=== PATIENT | male | born 1945 | race Caucasian/White ===

== ENCOUNTER 2017-01-18 15:43 | Inpatient (IN) | payer MEDICARE, OTHER ==
--- NOTE | ~2017-01-18 | OR ---
Unit #: [id number] #: [id number] Patient: LEONELA DUMONT [id number] [address] [place], [place] [address] [id number] MR#: [id number] NAME: LEONELA DUMONT ROOM: 555 Date of Procedure: 01/20/2017 Admission Date: 01/18/2017 Surgeon: Goran Amador M.D. : 1945 Attending Physician: Dean Julian M.D. Primary Care Physician: Mari Cooper M.D. OPERATIVE REPORT PRIMARY CARE PHYSICIAN Mari Cooper M.D. PREOPERATIVE DIAGNOSES Nausea, vomiting, diarrhea, colitis in a CAT scan. PROCEDURES PERFORMED Upper gastrointestinal endoscopy and biopsy as well as colonoscopy with biopsies and colonoscopy with polypectomy. POSTOPERATIVE DIAGNOSES For upper gastrointestinal endoscopy: 1. The patient had moderate prepyloric antral erosive gastritis. Otherwise, examination normal up to third part of duodenum. For colonoscopy: 1. The patient had the changes suggestive of ischemic colitis in the form of localized ulceration at the splenic flexure and proximal descending colon. This was in the form of linear ulcers with loss of mucosa in these areas and adjacent mucosa being completely normal with abrupt transition. 2. There was a single sessile polyp in the distal transverse colon. This was about 6 mm in size. It was removed using snare polypectomy. 3. Rest of the examination up to cecum was normal. The patient did not have any diverticulosis nor any internal hemorrhoids. Biopsies obtained from the areas of ischemia. In addition, the polyp was sent for histology. RECOMMENDATIONS 1. Follow up results of polyp histology and biopsies. 2. The patient can be discharged home from GI standpoint. 3. He will be followed up in the office in 8 to 10 weeks' time. SEDATION USED Procedural sedation. DESCRIPTION OF PROCEDURE Following detailed explanation of potential risks and complications of an upper endoscopy and a colonoscopy, namely perforation, bleeding, and complications related to sedation, the patient was brought to GI lab and laid in the left lateral decubitus position. Lubricated tip of the Olympus video upper endoscope was passed through bite block into the proximal esophagus under direct vision. The entire esophageal mucosa was examined and appeared normal. Z-line was nicely demarcated, there being Unit #: [id number] #: [id number] Patient: LEONELA DUMONT no esophagitis or hiatus hernia. The scope was then advanced into the gastric cavity and the latter was insufflated. Mucosa of the fundus, body, and antrum was examined. The patient was noted to have moderate prepyloric antral erythema and erosions indicating antral gastritis. Pylorus was intubated with visualization of the normal duodenal bulb and second and third part of the duodenum. Upon withdrawal and retroflexion, incisura, cardia, and greater curve examined and a biopsy obtained from the antrum for CLOtest. The scope was then withdrawn in the distal esophagus. The entire esophageal mucosa was examined all the way up to pharynx. No additional findings noted. The examination table was then turned by 180 degrees and the patient positioned for a colonoscopy. A digital rectal examination was performed, which was normal. Lubricated tip of the Olympus video colonoscope was inserted through the anus and advanced under direct vision. The scope was advanced and passed up to sigmoid into descending colon. No diverticula were seen in this area. However, at the junction of the descending colon and transverse colon, the patient was noted to have localized long and deep ulceration with a grayish white ulcers in this area. The surrounding mucosa proximally and distally was completely normal. There being abrupt transition from abnormal to normal in either side. The ulceration extended for about 3.5 to 4 cm. There were ulcers in the proximal sigmoid colon as well. The scope tip was then navigated all the way up to cecum with visualization of the ileocecal valve and the appendiceal orifice. Preparation was good with good visualization and photodocumentation was obtained. Successive segments of the colonic mucosa were examined upon withdrawal. The patient was noted to have a single sessile polyp in the distal transverse colon. This was about 7 mm in size. It was removed using snare polypectomy. The polyp was retrieved and sent for histology. We then took biopsies from the area of ischemic colitis in the splenic flexure and proximal descending colon and sent for histology. No additional findings noted. The patient did not have any diverticulosis nor any hemorrhoids. He tolerated the procedure without any postprocedure complications. Dictated by.Marci Abebe TD: 01/21/2017 08:33 JOB #: [id number] CC: Kiera Aquino M.D. OPERATIVE REPORT X Goran Amador MD PROCEDURE OPERATIVE NOTE
--- NOTE | ~2017-01-18 | HP ---
Unit #: [id number] #: [id number] Patient: LEONELA DUMONT [id number] [address] [place], [place] [address] [id number] I MR#: [id number] NAME: LEONELA DUMONT. ROOM: 08674 Age: 71 Sex: M Admission Date: 01/18/2017 : 1945 Attending Physician: Sandee Gallagher M.D. Primary Care Physician: Mari Cooper M.D. HISTORY AND PHYSICAL CHIEF COMPLAINT Lower abdominal pain, nausea, vomiting, diarrhea. HISTORY OF PRESENT ILLNESS This is a 71-year-old gentleman who has a past medical history of diabetes, COPD, chronic respiratory failure on 4 liters oxygen at home, hypertension, dyslipidemia, atrial fibrillation on chronic anticoagulation, history of osteoporosis, benign prostatic hypertrophy, history of pancreatitis in the past. He presented to the emergency room, he said that he thought that he has pancreatitis. He said initially he had vomiting on Saturday three or four times and since then he has had been having lower abdominal pain with no bowel movement in two days. Last night, he said he had diarrhea many times and with increasing abdominal pain he came to the ER. On workup in the ER, he is found to have white count 19,000. Sugar 370, BUN 31, creatinine 1.92. INR 4.2. CT scan shows left colon colitis. He denied chest pain. He had been having some nausea and vomiting on Saturday. Having diarrhea/loose bowels last night. They treated his constipation. Denies any blood in the stool. Denies loss of consciousness, fever, chills, polyuria, polydipsia, dysuria or other complaint. PAST MEDICAL HISTORY 1. History of healthcare-associated pneumonia in June 2016. 2. History of diabetes, insulin dependent. 3. History of COPD, now followed by Dr. Hartley. 4. History of chronic respiratory failure on 4 liters oxygen per nasal cannula. 5. Hypertension. 6. Dyslipidemia. 7. History of atrial fibrillation on chronic anticoagulation followed by Dr. Christianson. 8. History of osteoporosis. 9. Benign prostatic hypertrophy. 10. Subarachnoid hemorrhage, status post clipping in 1997. 11. History of PEA arrest in 2011. 12. Echocardiogram 05/18/2016 showed technically difficult study but shows ejection fraction 60% with mild concentric left ventricular hypertrophy, mild aortic regurgitation, mild tricuspid regurgitation. 13. History of pancreatitis in the past. PAST SURGICAL HISTORY 1. History of clipping of cerebral aneurysm. 2. Partial pancreatectomy. 3. Cholecystectomy. Unit #: [id number] #: [id number] Patient: LEONELA DUMONT 4. Kyphoplasty. 5. History of port placement. HOME MEDICATIONS 1. Hydralazine 50 mg b.i.d. 2. Paroxetine 20 mg daily. 3. Digoxin 0.125 mg daily. 4. DuoNeb nebulizer 1 unit q.i.d. 5. Hydrocodone 10/325 q.6 h. p.r.n. 6. Tizanidine 4 mg t.i.d. 7. Amitriptyline 25 mg h.s. 8. 70/30 25 to 30 units daily. 9. Terazosin 2 mg h.s. 10. Protonix 40 mg daily. 11. Simvastatin 10 mg daily. 12. Coumadin 6 mg daily. 13. Diltiazem ER 360 mg daily. 14. Symbicort 160/4.5 two puffs b.i.d. 15. Lisinopril 20 mg daily. ALLERGIES 1. Cephalexin. 2. Penicillin. 3. Questionable allergy to quinolones but he received Levaquin in the ER with no problems. SOCIAL HISTORY Patient lives with his . He is a former smoker. Does not use alcohol. No other illicit use. He is FULL CODE as per code status. FAMILY HISTORY Notable for father having coronary artery disease, mother had multiple myeloma. REVIEW OF SYSTEMS All review of systems negative except for history of present illness. PHYSICAL EXAMINATION VITAL SIGNS: Temperature 98.7, heart rate 117, respiratory rate 18, blood pressure 135/85, oxygen saturation 97% on room air. GENERAL: Middle-aged man lying in the bed, comfortable, currently not in any distress. He is alert, awake, oriented x3. HEENT: Atraumatic. Mucous membranes are moist. NECK: Supple. No JVD. Tracheal midline. HEART: S1, S2. Regular rate and rhythm. LUNGS: Poor air entry but no rhonchi, no wheezing. ABDOMEN: Soft. Mild, nonspecific lower abdominal tenderness, no guarding, no sign. EXTREMITIES: Normal. No cyanosis, no clubbing, no edema. NEUROLOGIC: No focal neurologic deficits. Cranial nerves II-XII intact. Strength 5/5 both sides. PSYCHIATRIC: Mood and affect are normal. This patient was very cooperative. SKIN: No rash. DIAGNOSTIC STUDIES LABORATORY: Urinalysis is negative. White count 19, hemoglobin 11, hematocrit 34, platelets 261. Lactic acid 1.3. Chemistries sodium 135, Unit #: [id number] #: [id number] Patient: LEONELA DUMONT potassium 4.3, chloride 99, glucose 370, BUN 31, creatinine 1.9, alkaline phosphatase 359. Lipase less than 10, amylase 6. INR 4.2. IMAGING: CT scan shows diffuse thickening wall of left side of colon up to the splenic flexure. Thickening of rectum. ASSESSMENT AND PLAN 1. Acute colitis, left-sided. Will place patient on full liquid diet. Start IV Levaquin, IV Flagyl, IV Protonix. Ask Dr. Amador to evaluate. 2. Proctitis, per CT scan. 3. Acute renal failure. Place on IV fluid. 4. Insulin-dependent diabetes, hyperglycemia. 5. History of chronic obstructive pulmonary disease, end-stage, oxygen dependent. 6. History of chronic respiratory failure. 7. Hypertension. Continue home medications. Hold lisinopril and continue diltiazem. 8. Dyslipidemia. Continue simvastatin. 9. History of anxiety depression. 10. Osteoporosis. 11. Benign prostatic hypertrophy. 12. Chronic atrial fibrillation. Increased INR, hold Coumadin. Repeat INR in the morning. 13. DVT prophylaxis on Coumadin. Dictated by Marci Maya/toni TD: 01/18/2017 22:00 JOB #: [id number] HISTORY AND PHYSICAL X X HISTORY AND PHYSICAL
--- NOTE | ~2017-01-18 | CO ---
Unit #: [id number] #: [id number] Patient: LEONELA SANCHEZ [id number] [address] [place], [place] [address] [id number] I MR#: [id number] NAME: LEONELA SANCHEZ. ROOM: 555 Age: 71 Sex: M Admission Date: 01/18/2017 : 1945 Attending Physician: Kiera Aquino M.D. Primary Care Physician: Mari Cooper M.D. Consultation Date: 01/19/2017 CONSULTATION REPORT PRIMARY CARE PHYSICIAN Mari Cooper M.D. REASON FOR CONSULTATION Nausea, vomiting, diarrhea, and colitis on a CAT scan. HISTORY OF PRESENT ILLNESS Mr. Sanchez is a very pleasant 71-year-old white gentleman, who is well known to me. He has longstanding history of chronic pancreatitis with partial pancreatic resection more than 15 years ago. Also, the patient has presented with history of left and right lower quadrant abdominal pain, constipation followed by profuse diarrhea symptomatic for the past 3 days. In addition, he also has history of epigastric pain. His diarrhea is continued. There is no history of overt GI bleed in the form of hematemesis, melena, or hematochezia. The patient did have a CT scan that shows left-sided colitis. The patient also had some history of anorexia and weight loss in the past, but this has been stabilized for a while. PAST MEDICAL HISTORY Chronic pancreatitis, status post partial resection more than 12 years ago; history of COPD, requiring long-term home oxygen; history of hypertension; diabetes; chronic pancreatitis and resection; hyperlipidemia; compression fractures; history of depression and anxiety; benign prostatic hypertrophy. PAST SURGICAL HISTORY Included partial pancreatectomy more than 15 years ago; cholecystectomy; history of intracerebral aneurysm surgery; history of subarachnoid hemorrhage in the past. FAMILY HISTORY Significant for diabetes, stroke, renal disease, but none of colon or pancreatic cancer. SOCIAL HISTORY Heavy smoker in the past and remote alcohol abuse. He has been abstinent approximately more than 13 to 14 years. , lives at home with his . ALLERGIES Penicillin and dicloxacillin as well as nuts and peaches. MEDICATIONS At home included the following; digoxin, lisinopril, hydralazine, DuoNeb, Unit #: [id number] #: [id number] Patient: LEONELA SANCHEZ hydrocodone, tizanidine, amitriptyline, insulin, terazosin, Protonix, simvastatin, Coumadin, diltiazem, Symbicort, and lisinopril. REVIEW OF SYSTEMS Detailed review of organ systems does not reveal any recent weight loss. No history of fever, chills, or rigors. No history of headache, seizures, chest pain, or syncope. No history of cough, expectoration, or hemoptysis. No history of dysuria, hematuria, or pyuria. No history of focal seizures or extremity weakness. Rest of review of organ systems is unremarkable. PHYSICAL EXAMINATION GENERAL: He is alert and oriented, and appears comfortable. VITAL SIGNS: Stable with a temperature of 98.9, pulse 77 per minute and regular, respiratory rate is 18, blood pressure is 102/41. He weighs 129 pounds and seems to have lost about 10 pounds since last seen. HEENT: He has mild pallor. There being no icterus, lymphadenopathy, or peripheral edema. CARDIOVASCULAR: Normal heart sounds. No murmurs on auscultation. LUNGS: Reveals normal breath sounds. Good air entry. ABDOMEN: Soft and nontender. Liver and spleen are not palpable. Bowel sounds normal. DIAGNOSTIC STUDIES LABORATORY RESULTS: Shows a hemoglobin of 9.6, white count of 19,000 with left shift, the platelet count is 261. Serum chemistry shows a BUN and creatinine of 31 and 1.9, and blood glucose of 370 yesterday and now 156 today. Serum sodium is 133, potassium is 2.1, albumin is 3.4 and LFTs are normal. CLINICAL IMPRESSION The patient with nausea, vomiting, epigastric pain, diarrhea, left and right lower quadrant abdominal pain. A CT scan consistent with colitis. The patient does require a diagnostic colonoscopy. An upper endoscopy will be done at the same time. I seriously doubt that we are dealing with pancreatitis; although, the patient has biochemical consequences of longstanding chronic pancreatitis, pancreatic resection in the form of diabetes. We will prep the patient today and consider endoscopy and colonoscopy tomorrow. Thank you very much for asking me to see this pleasant gentleman. I appreciate the consult. Dictated by.Dulce Maria. Marci Palmer/melinda TD: 01/19/2017 10:43 JOB #: [id number] CC: Sandee Gallagher M.D. Unit #: [id number] #: [id number] Patient: LEONELA SANCHEZ CONSULTATION REPORT X Goran Amador MD CONSULTATION REPORT
--- NOTE | ~2017-01-18 | A ---
[facility] Nutrition Therapy DATE: 01/19/17 Patient: LEONELA DUMONT Physician: JULEE Address: [address] Room/Bed: [address] [place] [address], Zip: [place] [address] Admit Date: 01/18/17 Date of : [birth year] Height: 5 10 Weight: 130 58.96 NUTRITIONAL ASSESSMENT: REASON: LOW BMI PT IS 71 Y.O. MALE ADMITTED FOR ACUTE COLITIS, N/V/D PMH: COPD, HTN, DM, HLD, ISCHEMIC COLITIS, AFIB, RESP FAILURE, PANCREATITIS S/P PARTIAL PANCREATECTOMY, BPH Anthropometrics: 5'10", WT: 130# (59 KG), BMI: 18.7, 78%IBW Labs: GLU: 156, BUN: 32, NA+:133, CA+:6.8, ALB: 3.4, LIPASE: <10, GFR: 52.9 Meds: NOVOLOG, ZOFRAN, IV LEVAQUIN, KCL, NACL, PROTONIX, MIRALAX I/O & Bowel function: 1210/426, 1 BM NOTED Skin Integrity: NO KNOWN SKIN ISSUES Estimated Nutrition Needs: INCREASED NUTRIENT NEEDS 2' PT UNDERWEIGHT, PMH, CURRENT CONDITION Assessment: CHART REVIEWED AND EVENTS NOTED. PT SEEN FOR LOW BMI. PT REPORTS GOOD PO INTAKE AND APPETITE PRIOR TO ADMIT, NO C/O N/V/D. PT REPORTS CONSUMING ~3 MEALS DAILY AT HOME. PT NOTES LOSING ~30# PAST 6-7 MONTHS (19% SEVERE WEIGHT LOSS NOTED). PT NOTES UBW IS ~210# BACK IN 2011. THIS RD ENCOURAGED PT TO ADD HIGH KCAL/HIGH PROTEIN SNACKS BETWEEN MEALS, PT AGREED. PT ALSO ENCOURAGED SUPPLEMENT INTAKE, PT AGREED TO ENSURE CLEAR BID (PT CURRENTLY ON CLEAR LIQUID DIET. PLANS FOR EGD AND COLONOSCOPY TOMORROW 01/20). PT REPORTED NO DIET QUESTIONS AT THIS TIME. RD TO FOLLOW. SEE RECOMMENDATIONS BELOW. Dx: MODERATE/SEVERE KCAL MALNUTRITION R/T CURRENT CONDITION, PMH AEB PT ~30#/19% SEVERE WEIGHT LOSS NOTED IN PAST 6-7 MONTHS. Intervention: 1. CLEAR LIQUID DIET 2. ENSURE CLEAR BID Monitoring, Evaluation and Goals: 1. PO INTAKE; PROVIDE AND CONSUME ADEQUATE NUTRITION W/NO C/O N/V/D (PO>50%) 2. WEIGHTS; PROMOTE GRADUAL WEIGHT GAIN; PREVENT FURTHER WEIGHT LOSS 3. LABS; WNL 4. GI; PROMOTE REGULAR GI FUNCTION MONITOR: [facility] Nutrition Therapy DATE: 01/19/17 Patient: LEONELA CHILELMOLLY Physician: JULEE Address: [facility] [address] Room/Bed: [address] [place] [address], Zip: [place] [address] Admit Date: 01/18/17 Date of : [birth year] Height: 5 10 Weight: 130 58.96 -DIET ADVANCEMENT -PO INTAKE/APPETITE -WEIGHTS -SUPPLEMENT INTAKE Recommendations: 1. ORDER MIXED BAY ENSURE CLEAR BID W/MEALS 2. ONCE MEDICALLY FEASIBLE, ADVANCE DIET TOLERATED TO GI SOFT/LOW FIBER 2' DX 3. ORDER VANILLA GLUCERNA SHAKES TID W/MEALS ONCE DIET ADVANCES (PER PT REQUEST) 4. APPRECIATE FAMILY AND STAFF TO ENCOURAGE ADEQUATE KCAL, PROTEIN AND FLUID INTAKE 2' PT UNDERWEIGHT, SEVERE WEIGHT LOSS NOTED RD WILL F/U PER PROTOCOL PT IS MOD/SEVERELY COMPROMISED Respectfully, MIGUEL DUNN MS, RD, LD [employer] [facility] cc: client file
--- NOTE | ~2017-01-18 | DS ---
Unit #: [id number] #: [id number] Patient: LEONELA DUMONT [id number] [address] [place], [place] [address] [id number] I MR#: [id number] NAME: LEONELA DUMONT. ROOM: 555 Age: 71 Sex: M Admission Date: 01/18/2017 : 1945 Discharge Date: 01/22/2017 Attending Physician: Dean Julian M.D. Primary Care Physician: Mari Cooper M.D. DISCHARGE SUMMARY REASON FOR ADMISSION Lower abdominal pain, nausea, vomiting, and diarrhea. HISTORY OF PRESENT ILLNESS/HOSPITAL COURSE The patient is a 71-year-old male with an underlying history of diabetes, COPD, chronic respiratory failure, hypertension, dyslipidemia, atrial fibrillation on chronic anticoagulation with Coumadin, and prior history of osteoporosis, who presented with above. Initial laboratory studies yielded a sugar of 370, creatinine of 1.92, as well as an INR of 4.2. He underwent CT of abdomen and pelvis in the ER, which revealed left-sided colitis, and therefore, he was admitted for the same. We consulted Dr. Amador [facility]. He saw and evaluated the patient. He underwent upper GI endoscopy as well as colonoscopy. His upper GI endoscopy did reveal mild antral gastritis, otherwise normal. Appropriate biopsies were taken. On his lower colonoscopy, findings were consistent with ischemic colitis up to the splenic flexure with ulceration, edema, which was noted. He did have a polyp, which was snared. He was appropriately repleted with IV fluids. He was also noted that he did have decreased MCV, and therefore, he was given IV iron as well. Today, at the time of discharge, his iron/hemoglobin level currently stands at 9.0, which is likely close to his baseline between [address] Amador has stated that it is stable for him to be discharged home. He has tolerated diet well without any difficulty. At the time of discharge, his creatinine is 0.8. He will be given prescriptions for Levaquin and Flagyl x6 additional days. He will be resumed on Coumadin 5 mg on a daily basis with the understanding that home health services will be checking a PT/INR in q.48 hour basis with results being called to Dr. Baires his primary care physician. At this point in time, it is also noted that his blood sugars were fairly unstable. His hemoglobin A1c was 9.7%. I did question his compliance Unit #: [id number] #: [id number] Patient: LEONELA DUMONT with his insulin regimen at home. He states that he has a varying amount with each meal. While he was here, we placed him on Levemir at 8 units q.a.m. with low-dose NovoLog sliding scale and his sugars for the most part remained stable, and therefore, I truly questioned if he is actually taking these many units while at home with such an elevated A1c. He will be given new prescriptions at the time of discharge. Please see below for medication adjustments and I have asked him to follow up with Dr. Baires in regard to further diabetic management. I have also discontinued his Zanaflex. He did not exhibit any need for muscle relaxers through hospital course and his Elavil has been decreased from 25 mg to 10 mg and at some point in time can be later discontinued altogether, certainly polypharmacy may be contributing that to his overall condition. FINAL DISCHARGE DIAGNOSES 1. Abdominal pain on admission, now resolved. 2. Ischemic colitis. 3. Gastritis. 4. Anemia, baseline hemoglobin 9 to 9.5. 5. Diabetes poorly controlled likely secondary to noncompliance. 6. Polypharmacy. 7. Hypertension. 8. Chronic atrial fibrillation. 9. Sepsis criteria present on admission. 10. End-stage chronic obstructive pulmonary disease, on home O2. 11. Noncompliance. 12. Failure to thrive/malnutrition secondary to poor p.o. intake. 13. Generalized anxiety disorder. 14. Chronic obstructive pulmonary disease. 15. Osteoporosis history. DISCHARGE MEDICATIONS Symbicort 160/4.5 two puffs b.i.d., DuoNeb aerosol solution q.8 hours with home nebulizer, Coumadin 5 mg p.o. daily, Elavil 10 mg p.o. q.h.s., Paxil 10 mg p.o. daily, digoxin 0.25 mg p.o. daily, Cardizem CD 360 mg p.o. daily, Zocor 10 mg p.o. q.h.s., hydralazine 50 mg p.o. q.8, Hytrin 2 mg p.o. daily, Levemir 8 units subcu q.a.m. and NovoLog low-dose sliding scale with insulin to be given with meals per low-dose Accu-Cheks and appropriate information given to patient. [place] 10/325 one tablet p.o. q.6 p.r.n. this is a home medication. No new prescription given. Protonix 40 mg p.o. daily, Levaquin 500 mg p.o. daily x6 days, ferrous gluconate 324 mg p.o. daily, Flagyl 500 mg p.o. q.8 x6 additional days. DISCHARGE CONDITION Stable. DISCHARGE DISPOSITION Home. FOLLOWUP INSTRUCTIONS Home health to check PT/INR q.48 hours with results called to PCP. Followup with Dr. Baires in office in 1 to 2 weeks for repeat BMP and CBC. Creatinine noted at time of discharge to be 0.8, and therefore, acute kidney injury likely resolved. Follow up with Dr. Amador in 6 weeks. Dictated by... Unit #: [id number] #: [id number] Patient: LEONELA DUMONT M.D. ISN/melinda TD: 01/24/2017 01:19 JOB #: [id number] DISCHARGE SUMMARY X Dean Julian MD X DISCHARGE SUMMARY
--- NOTE | ~2017-01-18 | MAL ---
[facility] Nutrition Therapy DATE: 01/19/17 Patient: LEONELA DUMONT Physician: JULEE Address: [address] [place] [address] DRIVE Room/Bed: [address] [place] [address], Zip: [place] [address] Admit Date: 01/18/17 Date of : 43 Height: 5 10 Weight: 130 58.96 PHYSICAL MALNUTRITION ASSESSMENT Weight Loss, chronic illness Severe: >10% past 6 months Severe: >20% past 1 year Weight Loss, Comment: PT REPORTS LOSING ~30# IN PAST 6-7 MONTHS/19% SEVERE WEIGHT LOSS NOTED Physical Findings Body Fat and Muscle Mass Moderate: (suggested) some loss of subqutaneous fat and/or muscle mass Severe: (obvious) significant muscle wasting and/or loss of subcutaneous fat Physical Findings Comment: PER RD OBSERVATION, SLIGHT DEPRESSION OF TEMPORAL MUSCLE NOTED, SOME PROTRUSION OF SHOULDER, CLAVICLE AND SCAPULA OBSERVED. LOSS OF MUSCLE NOTED IN BICEPS/TRICEPS AND CALVES. SLIGHTLY HOLLOW EYE APPEARANCE AND SOMEWHAT APPARENT CHEST NOTED. DRY SKIN AND MOUTH OBSERVED AND BRITTLE NAILS. Malnutrition Etiology Summary: MOD/SEVERELY COMPROMISED Chronic illness moderate Chronic illness severe Malnutrition Survey Comment: SEE RD ASSESSMENT ON 01/19/17 Respectfully, MIGUEL DUNN MS, RD, LD Food and Nutritional Services [facility] cc: client file
--- NOTE | ~2017-01-18 | CT4 ---
[facility] A Service of [facility] & [facility] RADIOLOGY TEXT RESULTS PATIENT: LEONELA DUMONT LOCATION: B 555-01 : 44 UNIT #: [id number] AGE: [address]: Kiera Aquino MD SEX: M ORDER DR: [id number] [facility] [address] [place], [place] [address] [id number] I MR#: [id number] Acc #: [id number] NAME: LEONELA DUMONT. : 1945 SEX: M STUDY DATE/TIME: 01/18/2017 18:24 UNIT: [facility] ROOM: [facility] STUDY DESCRIPTION: CT Abd and Pelv Wo Cont Attending Physician: Kiera Aquino M.D. Ordering Physician: Karina Eid M.D. Primary Care Physician: Mari Cooper M.D. MEDICAL IMAGING REPORT This report is preliminary unless electronic signature is present EXAM CT abdomen and pelvis with oral contrast and without IV contrast HISTORY Vomiting, diarrhea, pancreatitis, abdomen pain and weakness for [address] exam was performed with one or more of the following radiation dose reduction techniques: automatic exposure control, adjustment of mA and/or kV according to patient size, and iterative reconstruction. FINDINGS CT abdomen and pelvis was performed with oral contrast. CT abdomen: Moderately severe emphysema in both lung bases. Moderately extensive atelectasis or linear scarring in the posterior right lower lobe. The liver, spleen, kidneys, and adrenal glands are normal. Pancreatic parenchymal atrophy and fatty replacement if the pancreas. Several punctate calcifications in the distal pancreatic body and head and neck suggest chronic pancreatitis. Moderate diffuse wall thickening of the distal transverse colon, splenic flexure and descending colon. No bowel dilatation. No ascites. Normal caliber abdominal aorta. CT pelvis: Moderate diffuse wall thickening of the sigmoid colon and rectum with mild adjacent pericolonic and perirectal stranding. No free fluid. No bowel dilatation. The urinary bladder is normal. IMPRESSION 1. Moderate diffuse wall thickening of the left colon extending from the distal transverse through the splenic flexure and descending colon and sigmoid colon and wall thickening of the rectum with mild adjacent pericolonic and perirectal stranding. Findings favor segmental infectious or inflammatory proctocolitis. 2. No free fluid. No abscess. [facility]. [facility] A Service of [facility] RADIOLOGY TEXT RESULTS PATIENT: LEONELA DUMONT LOCATION: C5B 555-01 : 43 UNIT #: [id number] AGE: [address]: Kiera Aquino MD SEX: M ORDER DR: 3. No bowel obstruction. 4. Pancreatic atrophy and fatty replacement of the pancreas. Dictated by... Dany Jackson M.D. THIS IS AN ELECTRONICALLY VERIFIED REPORT Dany Jackson M.D. at 01/19/2017 10:42 PM KANA/sarbjit TD: 01/19/2017 14:10 JOB #: [id number] MEDICAL IMAGING REPORT COPY
[~2017-01-18 15:43] MED LIST: ACTOS15 MG PO; ALBUTEROL MININEB NEB; ALBUTEROL17 GM INH; AMITRIPTYLINE H25 MG PO; AMITRIPTYLINE H50 MG PO; AMITRYPTYLINE PO; ANTACID650 MG PO; BACLOFEN10 MG PO; BUSPAR PO; BYSTOLIC20 MG PO; CALCIUM 600 + D1 TAB PO; CIPRO PO; COUMADIN4 MG PO; CREON 10 CAPSU249 MG PO; CREON DR 12,001 EAC1 PO; DALIRESP500 MCG PO; DIFLUCAN PO; DIGITEK125 MCG PO; DILAUDID PO; DILTIAZEM 24HR360 M1 PO; DOXYCYCLINE HY100 M3 PO; DOXYCYCLINE PO; FENTANYL1 EACH TD; FERROUS GLUCON324 MG PO; FLAGYL PO; FLEXERIL PO; FLEXERIL10 M1 PO; FLEXERIL10 MG PO; FLOMAX0.4 M1 PO; FLOMAX0.4 MG PO; HUMIBID L.1 TAB.SR . PO; HUMULIN 70/30 V10 ML SQ; HUMULIN 70/30 V10 ML SUBQ; HYDRALAZINE HCL50 MG PO; HYDROCHLOROTHIA25 MG PO; HYDROCODON-ACE1 EAC4 PO; HYDROCODON-ACE1 EAC5 PO; HYDROCODON-ACE1 EAC7 PO; HYDROCODONE-APA1 T57 PO; HYTRIN2 MG PO; KCL PO; KLOR-CON PO; LASIX PO; LEVAQUIN PO; LOPRESSOR PO; MAXIMUM DAILY1 EACH PO; MEGACE PO; METFORMIN HCL850 MG PO; MULTIPLE VITAMI1 T11 PO; NILSTAT PO; NITROGYLCERIN SUBLINGUAL; NITROQUICK0.4 MG SL; NORVASC PO; NORVASC10 MG PO; NOVOLIN 70/30 V10 M1 SUBQ; NOVOLIN 70/30 V10 ML INJ; OXYCONTIN20 MG PO; OXYGEN; PAROXETINE HCL20 MG PO; PATIENT'S PHARMACY; PAXIL PO; PHENERGAN PO; PHENERGAN25 M1 PO; PHENERGAN25 MG PO; PREDNISONE10 MG PO; PRINIVIL40 MG PO; PROAIR HFA8.5 GM IH; PROAIR HFA8.5 GM INH; PROMETHAZINE HC25 MG PO; PROTONIX PO; PROZAC40 MG PO; ROXICODONE5 MG PO; SIMVASTATIN10 MG PO; SOD BICARBONATE PO; SODIUM BICARBO650 MG PO; SPIRIVA18 MCG INH; SYMBICORT INH; TOPROL XL 50 MG50 MG PO; VASOTEC PO; VASOTEC10 MG PO; VITAMIN E400 UNI1 PO; WARFARIN SODIUM6 M1 PO; ZANAFLEX4 M1 PO; ZOCOR PO; ZOCOR10 MG PO; ZOCOR20 MG PO
[2017-01-18 16:43] LABS: BASOPHIL# 0.1 X10e3 (0-0.3); BASOPHIL% 0.6 % (0-2.5); HEMATOCRIT 34.4 % (38.0-50.0); HEMOGLOBIN 11.1 gm/dL (13.0-16.0); LYMPHOCYTE# 0.4 X10e3 (1.0-3.5); LYMPHOCYTE% 2.1 % (17.0-45.0); MEAN CELL VOLUME 80.6 FL (83-96); MEAN CORPUSCULAR HEMOGLOBIN 25.9 PG (28-34); MEAN CORPUSCULAR HGB CONC 32.1 g/dL (30-36); MONOCYTE# 1.4 X10e3 (0-1.0); MONOCYTE% 7.3 % (3.0-12.0); NEUTROPHIL# 17.2 X10e3 (1.5-7.1); PLATELET COUNT 261 X10e3 (140-420); RED BLOOD COUNT 4.27 X10e (3.90-5.60); RED CELL DISTRIBUTION WIDTH 16.6 % (11.0-15.5); WHITE BLOOD COUNT 19.1 X10e3 (4.0-10.5)
[2017-01-18 16:45] LABS: DIFF IND YES
[2017-01-18 16:57] LABS: INR 4.2; PARTIAL THROMBOPLASTIN TIME 35.2 SECONDS (23.5-31.3)
[2017-01-18 17:02] LABS: PROTHROMBIN TIME (PATIENT) 46.3 SECONDS (9.6-11.5)
[2017-01-18 17:11] LABS: ALBUMIN SERUM 3.4 g/dL (3.5-5.0); ALKALINE PHOSPHATASE 359 U/L (32-92); ALT (SGPT) 19 U/L (10-40); AMYLASE 6 U/L (0-46); AST (SGOT) 37 U/L (10-42); BILIRUBIN, DIRECT 0.2 mg/dL (0.0-0.2); BILIRUBIN,TOTAL 1.2 mg/dL (0.2-2.0); BLOOD UREA NITROGEN 31 mg/dL (9-23); BUN/CREATININE RATIO 16.31; CALCIUM SERUM 7.9 mg/dL (8.4-10.2); CARBON DIOXIDE 22 mmol/L (22-31); CHLORIDE 99 mmol/L (100-111); CREATININE SERUM 1.9 mg/dL (0.6-1.4); GLOM FILT RATE Estimated 37.2 mL/min (>60); GLUCOSE FASTING 370 mg/dL (70-110); LIPASE <10 U/L (22-51); POTASSIUM 4.3 mmol/L (3.5-5.1); PROTEIN TOTAL SERUM 5.9 g/dL (6.0-8.3); SODIUM 135 mmol/L (135-145)
[2017-01-18 17:12] LABS: ANISOCYTOSIS SL; BURR CELLS PRESENT; PLATELET ESTIMATE NORMAL (NORMAL)
[2017-01-18 17:37] LABS: URINE SOURCE CLEAN CATCH
[2017-01-18 17:53] LABS: URINE APPEARANCE CLOUDY; URINE BLOOD NEG (NEG); URINE COLOR DK YELLOW; URINE GLUCOSE >1000 MG/DL (NEG); URINE KETONE 1+ (NEG); URINE LEUKOCYTE ESTERASE TRACE (NEG); URINE NITRATE NEG (NEG); URINE PROTEIN 1+ (NEG); URINE SPECIFIC GRAVITY 1.028 (1.003-1.035)
[2017-01-18 17:55] LABS: URINE BILIRUBIN NEG (NEG)
[2017-01-18 17:56] LABS: CULTURE INDICATED? NO; U HYALINE CASTS AUWI 0-2 /[LPF]; URINE BACTERIA AUWI NEG (NEGATIVE); URINE SQUAMOUS EPITHELIAL CELL OCC /[HPF]
[2017-01-18] MEDS ORDERED: HYDRALAZINE HCL50 MG PO (19:46)
[2017-01-18] MEDS ORDERED: PAXIL30 MG PO (19:46)
[2017-01-18] MEDS ORDERED: DIGOX0.125 MG PO (19:52)
[2017-01-18] MEDS ORDERED: IPRAT-ALBUT 0.5-3 ML INH (19:56)
[2017-01-18] MEDS ORDERED: HYDROCODON-ACE1 EAC5 PO (19:56)
[2017-01-18] MEDS ORDERED: TIZANIDINE HCL4 M1 PO (19:57)
[2017-01-18] MEDS ORDERED: AMITRYPTYLINE PO (19:58)
[2017-01-18] MEDS ORDERED: NOVOLOG FL100 UNIT/1 (19:59)
[2017-01-18] MEDS ORDERED: SIMVASTATIN10 MG PO (20:01)
[2017-01-18] MEDS ORDERED: PANTOPRAZOLE SO40 MG PO (20:01)
[2017-01-18] MEDS ORDERED: WARFARIN SODIUM6 M1 PO (20:02)
[2017-01-18] MEDS ORDERED: DILTIAZEM 24HR360 MG PO (20:02)
[2017-01-18] MEDS ORDERED: TERAZOSIN HCL2 MG PO (20:07)
[2017-01-18] MEDS ORDERED: LISINOPRIL20 MG PO (20:08)
[2017-01-18] MEDS ORDERED: SYMBICORT INH (20:10)
[2017-01-19 05:54] LABS: BUN/CREATININE RATIO 22.85; CALCIUM SERUM 6.8 mg/dL (8.4-10.2); CREATININE SERUM 1.4 mg/dL (0.6-1.4); GLOM FILT RATE Estimated 52.9 mL/min (>60); POTASSIUM 4.3 mmol/L (3.5-5.1)
[2017-01-19 06:20] LABS: BASOPHIL% 0.2 % (0-2.5); DIFF IND NO; EOSINOPHIL# 0.1 X10e3 (0-0.7); EOSINOPHIL% 0.4 % (0.0-7.0); HEMATOCRIT 29.8 % (38.0-50.0); HEMOGLOBIN 9.6 gm/dL (13.0-16.0); LYMPHOCYTE# 0.9 X10e3 (1.0-3.5); LYMPHOCYTE% 6.9 % (17.0-45.0); MEAN CELL VOLUME 80.9 FL (83-96); MEAN CORPUSCULAR HEMOGLOBIN 26.2 PG (28-34); MEAN CORPUSCULAR HGB CONC 32.3 g/dL (30-36); MONOCYTE# 1.4 X10e3 (0-1.0); MONOCYTE% 10.6 % (3.0-12.0); NEUTROPHIL# 10.8 X10e3 (1.5-7.1); NEUTROPHIL% 81.9 % (40-75); PLATELET COUNT 195 X10e3 (140-420); RED BLOOD COUNT 3.68 X10e (3.90-5.60); RED CELL DISTRIBUTION WIDTH 16.5 % (11.0-15.5); WHITE BLOOD COUNT 13.2 X10e3 (4.0-10.5)
[2017-01-20 00:46] LABS: INR 2.1
[2017-01-20 00:49] LABS: PROTHROMBIN TIME (PATIENT) 22.8 SECONDS (9.6-11.5)
[2017-01-20 06:59] LABS: HEMATOCRIT 25.2 % (38.0-50.0); HEMOGLOBIN 8.2 gm/dL (13.0-16.0); MEAN CELL VOLUME 80.2 FL (83-96); MEAN CORPUSCULAR HGB CONC 32.4 g/dL (30-36); MEAN PLATELET VOLUME 7.9 FL (6.5-11.5); RED BLOOD COUNT 3.14 X10e (3.90-5.60); RED CELL DISTRIBUTION WIDTH 16.3 % (11.0-15.5); WHITE BLOOD COUNT 8.4 X10e3 (4.0-10.5)
[2017-01-20 07:18] LABS: INR 2.1; PROTHROMBIN TIME (PATIENT) 22.4 SECONDS (9.6-11.5)
[2017-01-20 07:43] LABS: ALBUMIN SERUM 2.9 g/dL (3.5-5.0); ALKALINE PHOSPHATASE 203 U/L (32-92); ALT (SGPT) 24 U/L (10-40); AMYLASE 4 U/L (0-46); AST (SGOT) 48 U/L (10-42); BILIRUBIN,TOTAL 0.6 mg/dL (0.2-2.0); BLOOD UREA NITROGEN 34 mg/dL (9-23); BUN/CREATININE RATIO 26.15; CALCIUM SERUM 7.1 mg/dL (8.4-10.2); CARBON DIOXIDE 24 mmol/L (22-31); CHLORIDE 108 mmol/L (100-111); CREATININE SERUM 1.3 mg/dL (0.6-1.4); GLOM FILT RATE Estimated 57.7 mL/min (>60); GLUCOSE FASTING 147 mg/dL (70-110); IRON SERUM 10 ug/dL (45-182); LIPASE <10 U/L (22-51); POTASSIUM 4.1 mmol/L (3.5-5.1); PREALBUMIN 7.7 mg/dL (17.0-42.0); PROTEIN TOTAL SERUM 4.9 g/dL (6.0-8.3); SODIUM 134 mmol/L (135-145); TOTAL IRON BINDING CAPACITY 217 ug/dL (252-460); TRANSFERRIN 155 mg/dL (180-329); TRANSFERRIN SATURATION 5 % (20-50)
[2017-01-20 07:54] LABS: FOLATE (FOLIC ACID) 12.1 ng/mL (>5.8)
[2017-01-22 05:28] LABS: HEMATOCRIT 28.2 % (38.0-50.0); MEAN CELL VOLUME 79.6 FL (83-96); MEAN CORPUSCULAR HEMOGLOBIN 25.5 PG (28-34); MEAN PLATELET VOLUME 7.7 FL (6.5-11.5); RED BLOOD COUNT 3.54 X10e (3.90-5.60); RED CELL DISTRIBUTION WIDTH 16.5 % (11.0-15.5); WHITE BLOOD COUNT 6.8 X10e3 (4.0-10.5)
[2017-01-22 07:07] LABS: ALBUMIN SERUM 3.1 g/dL (3.5-5.0); ALKALINE PHOSPHATASE 153 U/L (32-92); ALT (SGPT) 25 U/L (10-40); AST (SGOT) 37 U/L (10-42); BILIRUBIN,TOTAL 0.4 mg/dL (0.2-2.0); BLOOD UREA NITROGEN 9 mg/dL (9-23); BUN/CREATININE RATIO 11.25; CALCIUM SERUM 8.2 mg/dL (8.4-10.2); CARBON DIOXIDE 26 mmol/L (22-31); CHLORIDE 104 mmol/L (100-111); CREATININE SERUM 0.8 mg/dL (0.6-1.4); GLOM FILT RATE Estimated ABOVE60 mL/min (>60); GLUCOSE FASTING 198 mg/dL (70-110); POTASSIUM 3.6 mmol/L (3.5-5.1); PROTEIN TOTAL SERUM 5.6 g/dL (6.0-8.3); SODIUM 138 mmol/L (135-145)
[2017-01-22] MEDS ORDERED: LEVEMIR100 UNITS/ SUBQ (12:06)
[2017-01-22] MEDS ORDERED: FLAGYL PO (12:13)
[2017-01-22] MEDS ORDERED: AMITRYPTYLINE (12:14)
[2017-01-22] MEDS ORDERED: LEVOFLOXACIN500 MG PO (12:15)
[2017-01-22] MEDS ORDERED: FERROUS GLUCON324 MG PO (12:16)
== END 2017-01-22 16:31 | disposition home health service (06) | DRG 393 ==
LOC: CED 15:43 → CEDOF 20:15 → C5B 22:29
PROVIDERS: Family Medicine; Internal Medicine; Internal Medicine Gastroenterology; Student in an Organized Health Care Education/Training Program
PROC: 30233K1 Transfusion of Nonautologous Frozen Plasma into Peripheral Vein, Percutaneous Approach (ICD-10-PCS; 2017-01-19)
PROC: 0DB68ZX Excision of Stomach, Via Natural or Artificial Opening Endoscopic, Diagnostic (ICD-10-PCS; principal; 2017-01-20 07:29)
PROC: 0DBM8ZX Excision of Descending Colon, Via Natural or Artificial Opening Endoscopic, Diagnostic (ICD-10-PCS; 2017-01-20 07:29)
PROC: 0DBL8ZX Excision of Transverse Colon, Via Natural or Artificial Opening Endoscopic, Diagnostic (ICD-10-PCS; 2017-01-20 07:29)
PROC: 0DBL8ZZ Excision of Transverse Colon, Via Natural or Artificial Opening Endoscopic (ICD-10-PCS; 2017-01-20 07:29)
DX: K55.9 Vascular disorder of intestine, unspecified (principal); J96.01 Acute respiratory failure with hypoxia; N17.9 Acute kidney failure, unspecified; A41.9 Sepsis, unspecified organism; E44.0 Moderate protein-calorie malnutrition; J96.10 Chronic respiratory failure, unspecified whether with hypoxia or hypercapnia; E11.65 Type 2 diabetes mellitus with hyperglycemia; I48.2 Chronic atrial fibrillation; J44.9 Chronic obstructive pulmonary disease, unspecified; I10 Essential (primary) hypertension; E83.51 Hypocalcemia; K62.89 Other specified diseases of anus and rectum; Z79.4 Long term (current) use of insulin; E78.5 Hyperlipidemia, unspecified; F41.8 Other specified anxiety disorders; M81.0 Age-related osteoporosis without current pathological fracture; N40.0 Benign prostatic hyperplasia without lower urinary tract symptoms; Z79.01 Long term (current) use of anticoagulants; K29.00 Acute gastritis without bleeding; D12.3 Benign neoplasm of transverse colon; R63.6 Underweight; K29.70 Gastritis, unspecified, without bleeding; R62.7 Adult failure to thrive; Z88.1 Allergy status to other antibiotic agents; Z88.0 Allergy status to penicillin; Z80.9 Family history of malignant neoplasm, unspecified
CPT/HCPCS: 36415; 74176; 80048; 80053; 80076; 81003; 82150; 82607; 82728; 82746; 82947; 83036; 83540; 83550; 83605; 83690; 83735; 83880; 84134; 85025; 85027; 85610; 85730; 86900; 86901; 87040; 87077; 88305; 88341; 88342; 94640; 94664; 94760; 96361; 96374; 96375; 97110; 97116; 97163; 97166; 97530; 97535; 99285; C9113; G8978-GP; G8979-GP; G8987-GO; G8988-GO; J0360; J0610; J1642; J1815; J1956; J2250; J2270; J2405; J2916; J3010; P9059

== ENCOUNTER 2017-04-04 18:04 | Inpatient (IN) | payer MEDICARE, OTHER ==
--- NOTE | ~2017-04-04 | EKG ---
PATIENT: LEONELA DUMONT UNIT #: [id number] Ventricular Rate: 96 BPM Atrial Rate: 96 BPM P-R Interval: 168 ms QRS Duration: 98 ms Q-T Interval: 352 ms QTC Calculation(Bezet): 444 ms P Carson: 55 degrees Calculated R Carson: 82 degrees Calculated T Carson: 26 degrees Diagnosis Line: Sinus rhythm with Premature atrial complexes Diagnosis Line: Minimal voltage criteria for LVH, may be normal Diagnosis Line: variant Diagnosis Line: Septal infarct , age undetermined Diagnosis Line: Abnormal ECG Diagnosis Line: When compared with ECG of 04-APR-2017 18:20, Diagnosis Line: (unconfirmed) Diagnosis Line: Premature atrial complexes are now Present Diagnosis Line: Septal infarct is now Present Diagnosis Line: Nonspecific T wave abnormality now evident in Diagnosis Line: Inferior leads Diagnosis Line: Confirmed by LYNNE ONEIL MD ([id number]) on Diagnosis Line: 04/05/2017 8:34:45 AM INTERPRETING MD: THAD ACOSTA
--- NOTE | ~2017-04-04 | CT4 ---
[facility] A Service of [facility] & [facility] RADIOLOGY TEXT RESULTS PATIENT: LEONELA DUMONT LOCATION: [facility] : 44 UNIT #: [id number] AGE: [address]: Karian Eid MD SEX: M ORDER DR: [id number] [facility] [address] [place], [place] [address] [id number] E MR#: [id number] Acc #: [id number] NAME: LEONELA DUMONT. : 1945 SEX: M STUDY DATE/TIME: 04/04/2017 21:33 UNIT: [facility] ROOM: STUDY DESCRIPTION: CT Abd and Pelv Wo Cont Attending Physician: Karina Eid M.D. Ordering Physician: Shaunna Gabriel M.D. Primary Care Physician: Mari Cooper M.D. MEDICAL IMAGING REPORT This report is preliminary unless electronic signature is present EXAM CT abdomen and pelvis 04/04 INDICATIONS Weakness and generalized abdominal pain with diarrhea that started today. TECHNIQUE Axial noncontrast images were obtained through the abdomen and pelvis. Multiplanar reformats were obtained. This CT exam was performed with one or more of the following radiation dose reduction techniques: automatic exposure control, adjustment of mA and/or kV according to patient size, and iterative reconstruction. COMPARISON STUDIES 01/18/2017. FINDINGS ABDOMEN: There is emphysema in the lung bases. There is bronchiectasis and probable chronic scarring in the right lower lobe. There is atherosclerotic disease. Calcifications in head of the pancreas are presumably the result of chronic calcific pancreatitis. The pancreas overall is atrophy. No evidence of acute pancreatitis at this time. No renal or ureteral stones are seen. There is no hydronephrosis. The unenhanced solid organs are otherwise unremarkable. The unopacified GI tract demonstrates some very mild generalized colonic wall thickening, but it is improved since prior CT. The small bowel is grossly normal. PELVIS: The rectal tube is present. Carty catheter is present as well. There is some mild wall thickening in the lower colon. There is an old L1 compression fracture status post kyphoplasty. There is also an old T12 compression fracture. STS. [facility] A Service of [facility] & [facility] RADIOLOGY TEXT RESULTS PATIENT: LEONELA DUMONT LOCATION: [facility] #: [id number] : 44 UNIT #: [id number] AGE: [address]: Karina Eid MD SEX: M ORDER DR: IMPRESSION 1. Mild generalized colitis but the degree of wall thickening in the colon is much improved since 01/18/2017. 2. Rectal tube and Carty catheter are in place. 3. No renal or ureteral stones. No hydronephrosis. 4. Emphysema with presumed chronic scarring and bronchiectasis in the right lower lobe. Dictated by... Tam Milton Jr., M.D. THIS IS AN ELECTRONICALLY VERIFIED REPORT Tam Milton Jr., M.D. at 04/04/2017 10:25 PM BRITTANI/doroteo TD: 04/04/2017 22:11 JOB #: [id number] MEDICAL IMAGING REPORT Page 1 of 1 COPY
--- NOTE | ~2017-04-04 | EKG ---
PATIENT: LEONELA DUMONT UNIT #: [id number] Ventricular Rate: 114 BPM Atrial Rate: 114 BPM P-R Interval: 152 ms QRS Duration: 82 ms Q-T Interval: 314 ms QTC Calculation(Bezet): 432 ms P [place]: 77 degrees Calculated R [place]: 79 degrees Calculated T [place]: 85 degrees Diagnosis Line: Sinus tachycardia Diagnosis Line: Otherwise normal ECG Diagnosis Line: When compared with ECG of 10-AUG-2016 07:01, Diagnosis Line: Premature ventricular complexes are no longer Diagnosis Line: Present Diagnosis Line: ST no longer depressed in Anterior leads Diagnosis Line: Confirmed by LYNNE ONEIL MD ([id number]) on Diagnosis Line: 04/05/2017 8:34:28 AM INTERPRETING MD: THAD ACOSTA
--- NOTE | ~2017-04-04 | HM ---
Unit #: [id number] #: [id number] Patient: LEONELA DUMONT [id number] [address] [place], [place] [address] [id number] I MR#: [id number] NAME: LEONELA DUMONT. : 1945 SEX: M STUDY DATE/TIME: UNIT: [facility] ROOM: 564 STUDY DESCRIPTION: Holter monitor Attending Physician: Debora Genao M.D. Primary Care Physician: Mari Cooper M.D. CARDIOLOGY REPORT EXAM Holter monitor. DATE APPLIED April 04, 2017. DATE SCANNED April 09, 2017. ORDERED BY Diya Swann M.D. READ BY [facility], Nieves Denton M.D. INDICATION Heart arrhythmia. COMMENTS 1. Basic rhythm is normal sinus rhythm. Total beats 121,147. Average heart rate 84 per minute. Heart rate varies from 66 per minute at 4:24 p.m. to 126 per minute at 8:51 a.m. 2. There were 21 isolated PVCs noted. 3. There were 4,653 isolated PACs and 30 atrial couplets noted. There were 6 runs of supraventricular tachycardia noted. Longest run contained 3 beats. 4. No high-degree AV blocks noted. 5. No diary with symptoms available. Dictated by... Marci Mays/ana TD: 04/10/2017 16:18 JOB #: [id number] Unit #: [id number] #: [id number] Patient: LEONELA DUMONT CARDIOLOGY REPORT Page 1 of 1 X Nieves Denton MD HOLTER MONITOR REPORT
--- NOTE | ~2017-04-04 | CR72 ---
[facility] A Service of [facility] & [facility] RADIOLOGY TEXT RESULTS PATIENT: LEONELA DUMONT LOCATION: [facility] : 44 UNIT #: [id number] AGE: [address]: Karina Eid MD SEX: M ORDER DR: [id number] [facility] [address] [place], [place] [address] [id number] MR#: [id number] Acc #: [id number] NAME: LEONELA DUMONT. : 1945 SEX: M STUDY DATE/TIME: 04/04/2017 18:29 UNIT: [facility] ROOM: STUDY DESCRIPTION: CR Chest Single View Portable Attending Physician: Shaunna Gabriel M.D. Ordering Physician: Shaunna Gabriel M.D. Primary Care Physician: Mari Cooper M.D. MEDICAL IMAGING REPORT This report is preliminary unless electronic signature is present EXAM Portable chest, 04/04 INDICATIONS Weakness and shortness of air over the last 2 days. FINDINGS AP portable chest compared with 08/10/2016. Again seen is severe emphysema. There is chronic scarring in the bases. No clearly acute infiltrates are seen and there is no pneumothorax. Patient has a Port-A-Cath with the tip in the SVC. The patient is status post multilevel kyphoplasty. IMPRESSION Severe emphysema with bibasilar scarring. No acute findings in the chest. Dictated by... Tam Milton Jr., M.D. THIS IS AN ELECTRONICALLY VERIFIED REPORT Tam Milton Jr., M.D. at 04/04/2017 10:23 PM BRITTANI/carla TD: 04/04/2017 20:58 JOB #: [id number] MEDICAL IMAGING REPORT Page 1 of 1 COPY
--- NOTE | ~2017-04-04 | DS ---
Unit #: [id number] #: [id number] Patient: LEONELA DUMONT [id number] [address] [address] [id number] I MR#: [id number] NAME: LEONELA DUMONT ROOM: 564 Age: 71 Sex: M Admission Date: 04/05/2017 : 1945 Discharge Date: Attending Physician: Debora Genao M.D. Primary Care Physician: Mari Cooper M.D. DISCHARGE SUMMARY DISCHARGE DIAGNOSES 1. Sepsis secondary to colitis. 2. Acute recurrent ischemic colitis. 3. Acute on chronic hypoxic respiratory failure. 4. Acute bronchitis with chronic obstructive pulmonary disease exacerbation. 5. Diarrhea, no clostridium difficile. Likely secondary to ischemic colitis. 6. Syncope. 7. Acute kidney injury. 8. Atrial fibrillation with subtherapeutic International Normalized Ratio currently. Patient came with supratherapeutic International Normalized Ratio. 9. Diabetes mellitus type 2, uncontrolled. 10. Benign prostatic hypertrophy. 11. Hypertension. 12. Low body weight. 13. Mild calorie malnutrition. CONSULTATIONS Dr. Goran Amador. PROCEDURES None. DIAGNOSTIC TESTING LAB DATA: Glucose 265. C. diff. negative. Stool cultures negative. Sodium 136, potassium 4.3, creatinine 0.8. Liver enzymes normal. INR 1.4. WBC 6.8, hemoglobin 10, platelets 150. Urine culture negative. Lactic acid 1.2. Blood cultures negative. ALLERGIES Penicillin and cephalexin. DISCHARGE MEDICATIONS 1. Symbicort 160 mcg 1 puff inhalation b.i.d. 2. DuoNeb 3 mL inhalation t.i.d. p.r.n. shortness of breath. 3. Coumadin 5 mg p.o. daily. 4. Amitriptyline 25 mg at bedtime. 5. Paxil 20 mg p.o. daily. 6. Colestid 1 gram p.o. q.i.d. 7. Digoxin 0.125 mg p.o. daily. 8. Cardizem 360 mg p.o. daily. 9. Zocor 10 mg daily. Unit #: [id number] #: [id number] Patient: LEONELA DUMONT 10. Hydralazine 50 mg p.o. t.i.d. 11. Hytrin 20 mg daily. 12. Levemir 8 units subcu daily. 13. NovoLog sliding scale. 14. Ferrous gluconate 325 p.o. daily. 15. Flagyl 500 t.i.d. for 5 more days. 16. Florastor 250 p.o. b.i.d. 17. Lortab 10 mg q.6 p.r.n. pain. 18. Protonix 40 daily. 19. Levaquin 500 p.o. daily for 5 more days. HOSPITALIZATION COURSE A 71 year old admitted with shortness of breath. Acute on chronic hypoxic respiratory failure. Patient was on 4 liters from bronchitis and COPD. Currently resolved. Patient received oxygen. Acute bronchitis with COPD exacerbation. Patient received IV Solu-Medrol, DuoNeb and Symbicort. Currently breathing better. Continue with DuoNeb and Symbicort. Acute recurrent ischemic colitis. No C. diff. Patient started on Flagyl and Levaquin. Continue with that for 5 more days. Patient seen by Dr. Goran Amador. Patient has severe diarrhea. Patient had FMS. Currently stools are better. Patient will follow with Dr. Goran Amador as an outpatient for that. Currently tolerating diet okay. Atrial fibrillation with chronic anticoagulation. Currently INR 1.4. Continue with Coumadin. He came with supratherapeutic INR, so Coumadin was on hold. Sepsis secondary to colitis. Resolved. Hypertension and diabetes, uncontrolled. Continue with insulin. For the hypertension, the patient's hydralazine has been increased. DISCHARGE PLAN 1. Patient will be discharged home with home health. 2. Follow with family physician in 1 week time. 3. Follow with Dr. Goran Amador in 2 weeks' time. Dictated by... Marci Jeter/ana TD: 04/07/2017 14:35 JOB #: [id number] Unit #: [id number] #: [id number] Patient: LEONELA DUMONT DISCHARGE SUMMARY Page 1 of 1 X Debora Genao MD DISCHARGE SUMMARY
--- NOTE | ~2017-04-04 | A ---
[facility] Nutrition Therapy DATE: 04/05/17 Patient: LEONELA DUMONT Physician: ERASTO Address: [address] Room/Bed: [address] [place] [address], Zip: [place] [address] Admit Date: 04/05/17 Date of : 43 Height: 5 10 Weight: 126 57.5 NUTRITIONAL ASSESSMENT: REASON: 4 NUTRITION RISK PT RE: 30# WEIGHT LOSS + LOW BMI + CONSULT RE: WEIGHT LOSS PT IS 71 Y.O. MALE ADMITTED FOR COPD EXAC, SYNCOPE, DIARRHEA PMH: COPD, HTN, HLD, DM, ISCHEMIC COLITIS, AFIB, RESP FAILURE, PANCREATITIS S/P PARTIAL PANCREATECTOMY Anthropometrics: 5'10", WT: 130# (PER PT) ( 59 KG), BMI: 18.7, 78%IBW -WEIGHTS RANGED 126-135# SINCE ADMIT Labs: GLU: 117, BUN: 27, CA+:8.0, AST: 48, A1c: 9.7 (01/09/17), GFR: 49.9 Meds: PROTONIX, NOVOLOG, ZOFRAN, NACL I/O & Bowel function: 900/100 Skin Integrity: DRY SKIN NOTED ALL OVER BODY Estimated Nutrition Needs: INCREASED NUTRIENT NEEDS 2' WEIGHT LOSS NOTED, PT UNDERWEIGHT, PMH Assessment: CHART REVIEWED AND EVENTS NOTED. PT SEEN FOR WEIGHT LOSS + CONSULT +LOW BMI. PT REPORTS FAIR/GOOD PO INTAKE AND APPETITE, NO C/O N/V/D. PT REPORTS "MY APPETITE GOES UP AND DOWN". PT ADDS HIS UBW IS ~200#, NOTES LOSING WEIGHT SINCE [id number]. [facility] (PT WEIGHED 206# TO CURRENT WEIGHT ABOVE). THIS RD ENCOURAGED ADEQUATE KCAL AND PROTEIN INTAKE (SMALL FREQUENT MEALS + SUPPLEMENT INTAKE), PT AGREED TO GLUCERNA SHAKES TID W/MEALS. PT ADDS HE DRINKS POWDERED PROTEIN SHAKES AT HOME. PT REPORTED NO DIET QUESTIONS AT THIS TIME. RD TO FOLLOW. SEE RECOMMENDATIONS BELOW. Dx: UNDERWEIGHT R/T PMH, DECREASED APPETITE AEB LOW BMI OF 18.7, 78%IBW, WEIGHT LOSS NOTED SINCE . Intervention: 1. CC + FULL LIQUID DIET 2. GLUCERNA SHAKES TID W/MEALS Monitoring, Evaluation and Goals: 1. ORAL INTAKE; CONSUME >50% OF MEALS AND SUPPLEMENTS W/NO C/O N/V/D 2. WEIGHTS; PROMOTE GRADUAL WEIGHT GAIN TOWARDS HEALTHY BMI 3. LABS; WNL 4. GI; PROMOTE REGULAR GI FUNCTION [facility] Nutrition Therapy DATE: 04/05/17 Patient: LEONELA DUMONT Physician: ERASTO Address: [address] [place] [address] Room/Bed: [address] [place] [address], Zip: [place] [address] Admit Date: 04/05/17 Date of : 43 Height: 5 10 Weight: 126 57.5 MONITOR: -PO INTAKE/APPETITE -DIET ADVANCEMENT -SUPPLEMENT INTAKE -WEIGHTS Recommendations: 1. PLEASE ORDER VANILLA GLUCERNA SHAKES TID W/MEALS 2. ONCE MEDICALLY FEASIBLE, ADVANCE DIET TO CC/GI SOFT IF COLITIS SUSPECTED 3. APPRECIATE FAMILY AND STAFF TO ENCOURAGE ADEQUATE PO INTAKE 4. PLEASE PROVIDE WEIGHTS q 3 DAYS FOR MONITORING PURPOSES, PT UNDERWEIGHT RD WILL F/U PER PROTOCOL PT IS MODERATELY COMPROMISED Respectfully, MIGUEL DUNN MS, RD, LD Food and Nutritional Services [facility] cc: client file
--- NOTE | ~2017-04-04 | HP ---
Unit #: [id number] #: [id number] Patient: LEONELA DUMONT [id number] [address] [place], [place] [address] [id number] MR#: [id number] NAME: LEONELA DUMONT. ROOM: 564 Age: 71 Sex: M Admission Date: 04/05/2017 : 1945 Attending Physician: Diya Swann M.D. Primary Care Physician: Mari Cooper M.D. HISTORY AND PHYSICAL CHIEF COMPLAINT Bronchitis, COPD, syncope and diarrhea. HISTORY This pleasant 71-year-old male with hypertension, IDDM, COPD, atrial fibrillation, is admitted for syncope, cough, and diarrhea. The patient states that he was well until two nights ago when he developed a cough productive of clear sputum, felt fatigued, became increasingly short of breath with wheezing and chills. Yesterday experienced a syncopal episode. On the way to this emergency department late last evening he experienced diarrhea and some upper abdominal discomfort. He presented to this emergency department last evening with a heart rate of 115, blood pressure 115/55. He was bolused with 2 L of saline, given morphine, Zofran, Flagyl and Levaquin. Chest x-ray shows stable COPD. CT scan shows mild generalized colitis but this is improved. He was last admitted 01/2017 for ischemic colitis. He has a nontender abdomen at present. Diminished breath sounds on exam. PAST MEDICAL HISTORY 1. Hospital acquired pneumonia 06/2016. 2. Osteoporosis with multiple compression fractures. 3. Hypertension. 4. Hyperlipidemia. 5. 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 6. O2 dependent COPD on 4 L of oxygen followed by Dr. Hartley. 7. History of chronic pancreatitis requiring partial pancreatectomy and later ERCP and stent placement by Dr. Goran Amador. 8. History of ischemic colitis. During the patient's last admission in January, his EGD revealed antral erosive gastritis. 9. Colonoscopy showed changes suggestive of ischemic colitis, sessile polyp was removed. 10. BPH. 11. Osteoporosis. 12. Normal coronary arteries on cardiac catheterization 2011. Patient does have atrial fibrillation and is anticoagulated, last echo revealed and ejection fraction of 60% with mild AR and TR. 13. PEA arrest 12/2011. During that hospitalization T7 cement was removed. Patient was recuperating. Near the time of his discharge he developed shortness of breath and during CT scan arrested. He is resuscitated and his course was complicated by MRSA, ventilator associated pneumonia, right arm DVT secondary to PICC line and acute kidney injury. 14. Subarachnoid hemorrhage with clip 1997. Unit #: [id number] #: [id number] Patient: LEONELA DUMONT 15. Cholecystectomy. 16. Partial pancreatectomy. ALLERGIES Penicillin and peaches. HOME MEDICATIONS I have a discharge summary 01/2016, which lists Symbicort 160/4.5 two puffs b.i.d.; DuoNeb; Coumadin; Elavil 10 mg q.h.s.; Paxil 10 mg daily, digoxin 0.25 mg daily; Cardizem CD 360 mg daily; Zocor 10 mg q.h.s.; hydralazine 50 mg t.i.d.; Hytrin 2 mg daily; Levemir 8 units in the morning and low dose sliding scale NovoLog; Bolton 10/325 q.6 hours as needed; Protonix 40 mg daily; and iron tablets. FAMILY HISTORY Malignancy, CVA, kidney disease, and CAD. SOCIAL HISTORY The patient lives with his . He stopped smoking in 1997 and does not drink alcohol. REVIEW OF SYSTEMS Notable for shortness of breath, wheezing, chills, cough, diarrhea today, osteoporosis, hypertension, hyperlipidemia, diabetes, pancreatitis, BPH, ischemic colitis, atrial fibrillation, subarachnoid hemorrhage and above mentioned surgeries. All other systems were reviewed and otherwise negative. PHYSICAL EXAMINATION GENERAL: Pleasant, thin, 71-year-old male who currently is in no acute distress. VITAL SIGNS: Temperature 99.7, pulse 115, respirations 18, blood pressure 115/55, which has improved to 143/77, O2 saturation currently is 93% on 4 L of oxygen. HEENT: Eyes - PERRLA. Extraocular muscles are intact. Pharynx is benign. NECK: Supple without adenopathy or thyromegaly. CHEST: Diminished breath sounds. CARDIAC: Normal S1 and S2 without definite murmur. ABDOMEN: Bowel sounds are present. No hepatosplenomegaly, tenderness, or masses at this time. EXTREMITIES: Without edema. NEUROLOGIC: Patient is awake, alert, and oriented. Cranial nerves are intact, except (1) but hard of hearing, equal strength throughout. DIAGNOSTIC STUDIES ADMISSION LABS: Hematocrit is 42, white blood count is 17.4, platelet count is normal, 11 bands are noted. SMA 12 - glucose 170, creatinine 1.6 up from 0.8, sodium 134, chloride 98, AST 48, alk phos 175. Lactic acid is normal. Cardiac markers are negative. INR is 4.7. Urinalysis 1+ protein, 5-10 white cells but no bacteria. IMAGING STUDIES: Chest x-ray - severe COPD. CT scan of the abdomen and pelvis show mild generalized colitis but improved from before. CARDIOLOGY STUDIES: EKG not yet done but I am looking at the patient's Unit #: [id number] #: [id number] Patient: LEONELA DUMONT telemetry strips and it appears that he is in a sinus tachycardia. Will obtain an EKG. ASSESSMENT 1. Likely bronchitis and COPD. 2. Syncope. 3. Diarrhea today and improved colitis on CT scan. Patient has a nontender abdomen at present. He was recently admitted for ischemic colitis in January. 4. Acute kidney injury. 5. Atrial fibrillation with supratherapeutic INR. 6. IDDM. 7. BPH. 8. Hypertension. PLANS 1. Doxycycline, DuoNeb and Symbicort. 2. Start Flagyl pending stool cultures and re-examine the patient's abdomen in the morning. 3. IV fluids. 4. Check digoxin level. 5. Blood cultures are pending. 6. Hold Coumadin and recheck INR in the morning. 7. Check orthostatics, Holter monitor and cardiac enzymes. 8. Will hold hydralazine for now and will re-add if blood pressure remains stable. Dictated by Diya Swann M.D. BHAVANA/lillie TD: 04/05/2017 05:02 JOB #: [id number] HISTORY AND PHYSICAL Page 1 of 1 X Diya Swann MD X HISTORY AND PHYSICAL
[~2017-04-04 18:04] MED LIST changes: +AMITRYPTYLINE; +DIGOX0.125 MG PO; +DILTIAZEM 24HR360 MG PO; +IPRAT-ALBUT 0.5-3 ML INH; +LEVEMIR100 UNITS/ SUBQ; +LEVOFLOXACIN500 MG PO; +LISINOPRIL20 MG PO; +NOVOLOG FL100 UNIT/1; +PANTOPRAZOLE SO40 MG PO; +PAXIL30 MG PO; +TERAZOSIN HCL2 MG PO; +TIZANIDINE HCL4 M1 PO
[2017-04-04 19:11] LABS: POC - CKMB 9.8 ng/mL (0.0-7.9); POC - TROPONIN <0.05 ng/mL (<=0.05)
[2017-04-04 19:24] LABS: ALBUMIN SERUM 4.3 g/dL (3.5-5.0); BILIRUBIN, DIRECT 0.1 mg/dL (0.0-0.2); BILIRUBIN,INDIRECT 0.5 mg/dL (0.0-0.9); BILIRUBIN,TOTAL 0.6 mg/dL (0.2-2.0); BUN/CREATININE RATIO 14.37; CALCIUM SERUM 9.3 mg/dL (8.4-10.2); CREATININE SERUM 1.6 mg/dL (0.6-1.4); GLOM FILT RATE Estimated 42.4 mL/min (>60); POTASSIUM 3.9 mmol/L (3.5-5.1); PROTEIN TOTAL SERUM 7.2 g/dL (6.0-8.3)
[2017-04-04 19:34] LABS: BASOPHIL# 0.1 X10e3 (0-0.3); BASOPHIL% 0.5 % (0-2.5); EOSINOPHIL# 0.1 X10e3 (0-0.7); EOSINOPHIL% 0.5 % (0.0-7.0); HEMOGLOBIN 13.4 gm/dL (13.0-16.0); LYMPHOCYTE# 2.1 X10e3 (1.0-3.5); LYMPHOCYTE% 11.9 % (17.0-45.0); MEAN CELL VOLUME 82.5 FL (83-96); MEAN CORPUSCULAR HEMOGLOBIN 26.3 PG (28-34); MEAN CORPUSCULAR HGB CONC 31.9 g/dL (30-36); MEAN PLATELET VOLUME 7.7 FL (6.5-11.5); MONOCYTE# 1.1 X10e3 (0-1.0); MONOCYTE% 6.2 % (3.0-12.0); NEUTROPHIL# 14.1 X10e3 (1.5-7.1); NEUTROPHIL% 80.9 % (40-75); PLATELET COUNT 266 X10e3 (140-420); RED BLOOD COUNT 5.08 X10e (3.90-5.60); RED CELL DISTRIBUTION WIDTH 17.7 % (11.0-15.5); WHITE BLOOD COUNT 17.4 X10e3 (4.0-10.5)
[2017-04-04 19:40] LABS: DIFF IND YES
[2017-04-04 19:48] LABS: PARTIAL THROMBOPLASTIN TIME 39.2 SECONDS (23.5-31.3)
[2017-04-04 19:51] LABS: PROTHROMBIN TIME (PATIENT) 52.2 SECONDS (9.6-11.5)
[2017-04-04 19:53] LABS: INR 4.7
[2017-04-04 20:12] LABS: ANISOCYTOSIS MOD; PLATELET ESTIMATE NORMAL (NORMAL); POIKILOCYTOSIS SL
[2017-04-04 20:52] LABS: URINE SOURCE CLEAN CATCH
[2017-04-04 20:57] LABS: URINE APPEARANCE CLEAR; URINE BILIRUBIN NEG (NEG); URINE BLOOD NEG (NEG); URINE COLOR YELLOW; URINE GLUCOSE NEG (NEG); URINE KETONE NEG (NEG); URINE LEUKOCYTE ESTERASE NEG (NEG); URINE NITRATE NEG (NEG); URINE PROTEIN 1+ (NEG); URINE SPECIFIC GRAVITY 1.015 (1.003-1.035)
[2017-04-04 21:01] LABS: CULTURE INDICATED? YES; URBCS1 AUWI 0-2 /[HPF] (0-2); URINE BACTERIA AUWI NEG (NEGATIVE); URINE SQUAMOUS EPITHELIAL CELL MANY /[HPF]
[2017-04-05 09:11] LABS: BASOPHIL# 0.1 X10e3 (0-0.3); BASOPHIL% 0.7 % (0-2.5); EOSINOPHIL% 0.1 % (0.0-7.0); HEMATOCRIT 37.1 % (38.0-50.0); HEMOGLOBIN 11.8 gm/dL (13.0-16.0); LYMPHOCYTE# 0.9 X10e3 (1.0-3.5); LYMPHOCYTE% 8.7 % (17.0-45.0); MEAN CELL VOLUME 82.9 FL (83-96); MEAN CORPUSCULAR HEMOGLOBIN 26.3 PG (28-34); MEAN CORPUSCULAR HGB CONC 31.8 g/dL (30-36); MEAN PLATELET VOLUME 7.6 FL (6.5-11.5); MONOCYTE# 0.8 X10e3 (0-1.0); MONOCYTE% 7.1 % (3.0-12.0); NEUTROPHIL# 8.8 X10e3 (1.5-7.1); NEUTROPHIL% 83.4 % (40-75); PLATELET COUNT 184 X10e3 (140-420); RED BLOOD COUNT 4.47 X10e (3.90-5.60); RED CELL DISTRIBUTION WIDTH 17.6 % (11.0-15.5); WHITE BLOOD COUNT 10.6 X10e3 (4.0-10.5)
[2017-04-05 09:12] LABS: DIFF IND NO
[2017-04-05 09:41] LABS: BUN/CREATININE RATIO 19.28; CREATININE SERUM 1.4 mg/dL (0.6-1.4); DIGOXIN (LANOXIN) 0.2 ng/ml (1.0-2.0); GLOM FILT RATE Estimated 49.9 mL/min (>60); POTASSIUM 4.3 mmol/L (3.5-5.1)
[2017-04-05 09:52] LABS: INR 6.2; PARTIAL THROMBOPLASTIN TIME 59.1 SECONDS (23.5-31.3); PROTHROMBIN TIME (PATIENT) 69.9 SECONDS (9.6-11.5)
[2017-04-05 09:59] LABS: %MB 4.7 % (0.0-4.0); MB 5.2 ng/ml
[2017-04-06 05:55] LABS: HEMATOCRIT 28.1 % (38.0-50.0); MEAN CELL VOLUME 81.3 FL (83-96); MEAN CORPUSCULAR HEMOGLOBIN 26.7 PG (28-34); MEAN CORPUSCULAR HGB CONC 32.8 g/dL (30-36); MEAN PLATELET VOLUME 7.6 FL (6.5-11.5); RED BLOOD COUNT 3.46 X10e (3.90-5.60); RED CELL DISTRIBUTION WIDTH 17.2 % (11.0-15.5); WHITE BLOOD COUNT 7.4 X10e3 (4.0-10.5)
[2017-04-06 05:57] LABS: HEMOGLOBIN 9.2 gm/dL (13.0-16.0)
[2017-04-06 06:05] LABS: INR 3.6; PROTHROMBIN TIME (PATIENT) 39.4 SECONDS (9.6-11.5)
[2017-04-06 06:27] LABS: ALBUMIN SERUM 2.8 g/dL (3.5-5.0); BILIRUBIN,TOTAL 0.7 mg/dL (0.2-2.0); BUN/CREATININE RATIO 18.88; CREATININE SERUM 0.9 mg/dL (0.6-1.4); POTASSIUM 4.1 mmol/L (3.5-5.1)
[2017-04-07 05:17] LABS: HEMATOCRIT 29.9 % (38.0-50.0); MEAN CELL VOLUME 80.4 FL (83-96); MEAN CORPUSCULAR HEMOGLOBIN 26.8 PG (28-34); MEAN CORPUSCULAR HGB CONC 33.4 g/dL (30-36); RED BLOOD COUNT 3.71 X10e (3.90-5.60); RED CELL DISTRIBUTION WIDTH 17.3 % (11.0-15.5); WHITE BLOOD COUNT 6.8 X10e3 (4.0-10.5)
[2017-04-07 05:30] LABS: INR 1.4
[2017-04-07 05:39] LABS: PROTHROMBIN TIME (PATIENT) 15.4 SECONDS (9.6-11.5)
[2017-04-07 06:19] LABS: ALKALINE PHOSPHATASE 47 U/L (32-92); ALT (SGPT) 21 U/L (10-40); AST (SGOT) 17 U/L (10-42); BILIRUBIN,TOTAL 0.5 mg/dL (0.2-2.0); BLOOD UREA NITROGEN 13 mg/dL (9-23); BUN/CREATININE RATIO 16.25; CALCIUM SERUM 8.6 mg/dL (8.4-10.2); CARBON DIOXIDE 27 mmol/L (22-31); CHLORIDE 102 mmol/L (100-111); CREATININE SERUM 0.8 mg/dL (0.6-1.4); GLOM FILT RATE Estimated 89.3 mL/min (>60); GLUCOSE FASTING 201 mg/dL (70-110); LIPASE 12 U/L (22-51); POTASSIUM 4.3 mmol/L (3.5-5.1); PROTEIN TOTAL SERUM 5.7 g/dL (6.0-8.3); SODIUM 136 mmol/L (135-145)
[2017-04-07 06:24] LABS: AMYLASE <7 U/L (0-46)
[2017-04-07] MEDS ORDERED: COLESTID PO (18:30)
[2017-04-07] MEDS ORDERED: [UNRECOGNIZED DRUG - OTHER] (18:31)
== END 2017-04-07 20:23 | disposition home health service (06) | DRG 871 ==
LOC: CED 18:04 → CEDOF 04-05 00:16 → C5C 04-05 00:16
PROVIDERS: Emergency Medicine; Internal Medicine; Internal Medicine Gastroenterology; Student in an Organized Health Care Education/Training Program
DX: A41.9 Sepsis, unspecified organism (principal); K55.039 Acute (reversible) ischemia of large intestine, extent unspecified; J96.21 Acute and chronic respiratory failure with hypoxia; N17.9 Acute kidney failure, unspecified; I48.2 Chronic atrial fibrillation; J44.0 Chronic obstructive pulmonary disease with (acute) lower respiratory infection; R55 Syncope and collapse; I10 Essential (primary) hypertension; J44.1 Chronic obstructive pulmonary disease with (acute) exacerbation; E44.1 Mild protein-calorie malnutrition; Z68.1 Body mass index [BMI] 19.9 or less, adult; J20.9 Acute bronchitis, unspecified; Z79.01 Long term (current) use of anticoagulants; E11.65 Type 2 diabetes mellitus with hyperglycemia; Z79.4 Long term (current) use of insulin; N40.0 Benign prostatic hyperplasia without lower urinary tract symptoms; E78.5 Hyperlipidemia, unspecified; M81.0 Age-related osteoporosis without current pathological fracture; Z90.49 Acquired absence of other specified parts of digestive tract; Z87.891 Personal history of nicotine dependence; Z88.0 Allergy status to penicillin; Z88.1 Allergy status to other antibiotic agents; Z91.018 Allergy to other foods; Z82.3 Family history of stroke; Z80.9 Family history of malignant neoplasm, unspecified; Z84.1 Family history of disorders of kidney and ureter; Z82.49 Family history of ischemic heart disease and other diseases of the circulatory system
CPT/HCPCS: 36415; 51702; 71010; 74176; 80048; 80053; 80076; 80162; 81003; 82150; 82550; 82553; 82947; 83516; 83605; 83690; 84484; 85025; 85027; 85610; 85730; 87040; 87045; 87086; 87177; 87209; 87427; 87493; 87899; 93005; 93225; 93226; 94640; 94760; 96361; 96374; 96375; 99285; J1815; J1956; J2270; J2405

== ENCOUNTER 2017-05-18 15:18 | Emergency (ER) | payer MEDICARE, OTHER ==
--- NOTE | ~2017-05-18 | EKG ---
PATIENT: LEONELA DUMONT UNIT #: [id number] Ventricular Rate: 89 BPM Atrial Rate: 89 BPM P-R Interval: 182 ms QRS Duration: 90 ms Q-T Interval: 362 ms QTC Calculation(Bezet): 440 ms P Abbott: 60 degrees Calculated R Abbott: 52 degrees Calculated T Abbott: 69 degrees Diagnosis Line: Normal sinus rhythm Diagnosis Line: Voltage criteria for left ventricular hypertrophy Diagnosis Line: Abnormal ECG Diagnosis Line: When compared with ECG of 05-APR-2017 05:41, Diagnosis Line: Premature atrial complexes are no longer Present Diagnosis Line: Diagnosis Line: Confirmed by MARC ALVAREZ MD ([id number]) on Diagnosis Line: 05/19/2017 10:05:39 AM INTERPRETING NICOLAS WINSLOW
[~2017-05-18 15:18] MED LIST changes: +COLESTID PO; +[UNRECOGNIZED DRUG - OTHER]
[2017-05-18 16:54] LABS: BASOPHIL% 0.6 % (0-2.5); EOSINOPHIL# 0.2 X10e3 (0-0.7); EOSINOPHIL% 3.2 % (0.0-7.0); HEMATOCRIT 29.4 % (38.0-50.0); HEMOGLOBIN 9.7 gm/dL (13.0-16.0); LYMPHOCYTE# 1.7 X10e3 (1.0-3.5); LYMPHOCYTE% 27.2 % (17.0-45.0); MEAN CELL VOLUME 83.3 FL (83-96); MEAN CORPUSCULAR HEMOGLOBIN 27.4 PG (28-34); MEAN CORPUSCULAR HGB CONC 32.9 g/dL (30-36); MEAN PLATELET VOLUME 7.2 FL (6.5-11.5); MONOCYTE# 0.7 X10e3 (0-1.0); MONOCYTE% 10.6 % (3.0-12.0); NEUTROPHIL# 3.6 X10e3 (1.5-7.1); NEUTROPHIL% 58.4 % (40-75); PLATELET COUNT 213 X10e3 (140-420); RED BLOOD COUNT 3.54 X10e (3.90-5.60); RED CELL DISTRIBUTION WIDTH 16.1 % (11.0-15.5); WHITE BLOOD COUNT 6.2 X10e3 (4.0-10.5)
[2017-05-18 17:01] LABS: DIFF IND NO
[2017-05-18 17:08] LABS: PARTIAL THROMBOPLASTIN TIME 31.4 SECONDS (23.5-31.3)
[2017-05-18 17:19] LABS: PROTHROMBIN TIME (PATIENT) 32.3 SECONDS (10.0-11.7)
[2017-05-18 17:20] LABS: ALBUMIN SERUM 3.8 g/dL (3.5-5.0); ALKALINE PHOSPHATASE 52 U/L (32-92); ALT (SGPT) 11 U/L (10-40); AST (SGOT) 13 U/L (10-42); BILIRUBIN, DIRECT <0.1 mg/dL (0.0-0.2); BILIRUBIN,INDIRECT 0.4 mg/dL (0.0-0.9); BILIRUBIN,TOTAL 0.5 mg/dL (0.2-2.0); BLOOD UREA NITROGEN 26 mg/dL (9-23); CALCIUM SERUM 9.3 mg/dL (8.4-10.2); CARBON DIOXIDE 29 mmol/L (22-31); CHLORIDE 99 mmol/L (100-111); GLOM FILT RATE Estimated 74.9 mL/min (>60); GLUCOSE FASTING 332 mg/dL (70-110); POTASSIUM 3.8 mmol/L (3.5-5.1); PROTEIN TOTAL SERUM 6.5 g/dL (6.0-8.3); SODIUM 136 mmol/L (135-145)
== END 2017-05-18 18:22 | disposition home or self-care (01) ==
LOC: CED 15:18
PROVIDERS: Emergency Medicine
DX: G83.9 Paralytic syndrome, unspecified (principal); I48.91 Unspecified atrial fibrillation; E11.9 Type 2 diabetes mellitus without complications; I10 Essential (primary) hypertension; E78.5 Hyperlipidemia, unspecified; J44.9 Chronic obstructive pulmonary disease, unspecified; Z90.49 Acquired absence of other specified parts of digestive tract; Z88.0 Allergy status to penicillin; Z88.8 Allergy status to other drugs, medicaments and biological substances
CPT/HCPCS: 29125; 36415; 80048; 80076; 85025; 85610; 85730; 93005; 99285

== ENCOUNTER 2017-06-20 16:12 | Emergency (ER) | payer MEDICARE, OTHER ==
[~2017-06-20] VITALS: Ht 177.8 cm; Wt 63.5 kg
--- NOTE | ~2017-06-20 | CT16 ---
[facility] A Service of [facility] RADIOLOGY TEXT RESULTS PATIENT: LEONELA DUMONT LOCATION: [facility] : 44 UNIT #: [id number] AGE: [address]: Cecilia Hoyt MD SEX: M ORDER DR: [id number] [facility] [address] [place], [place] [address] [id number] E MR#: [id number] Acc #: [id number] NAME: LEONELA DUMONT. : 1945 SEX: M STUDY DATE/TIME: 06/20/2017 19:45 UNIT: [facility] ROOM: STUDY DESCRIPTION: CT Angio Chest for PE Attending Physician: Cecilia Hoyt M.D. Ordering Physician: Cecilia Hoyt M.D. Primary Care Physician: Mari Cooper M.D. MEDICAL IMAGING REPORT This report is preliminary unless electronic signature is present EXAM Chest CT angiogram with contrast, 06/20/2017 PROCEDURE Axial contrast-enhanced chest CT angiogram with three-dimensional reformats. This CT exam was performed with one or more of the following radiation dose reduction techniques: automatic exposure control, adjustment of mA and/or kV according to patient size, and iterative reconstruction. COMPARISON 08/10/2016 CLINICAL HISTORY Elevated D-dimer, short of air x2 days with cough. Pain on inspiration. FINDINGS There is no consolidation but there is some linear density at the posterior right lung base, probably atelectasis or scarring or less likely infiltrate. There is advanced underlying pulmonary emphysema. Pulmonary arteries are well opacified, and there is no evidence of pulmonary embolism. The thoracic aorta is normal in caliber. Images of the upper abdomen are unremarkable. There has been previous kyphoplasty at several levels but there is no acute fracture. IMPRESSION 1. There is some minimal density posteriorly at the right lung base, probably atelectasis or scarring, less likely minimal infiltrate. It appears a larger area of opacity was present in this same area about 1 year ago and again, this may represent some scarring. [facility] A Service [facility] RADIOLOGY TEXT RESULTS PATIENT: LEONELA DUMONT LOCATION: [facility] : 44 UNIT #: [id number] AGE: [address]: Cecilia Hoyt MD SEX: M ORDER DR: 2. Bolus timing is adequate and there is no evidence of pulmonary embolism. The thoracic aorta is normal in caliber. 3. Advanced underlying emphysema. Dictated by... Rupert Coello M.D. THIS IS AN ELECTRONICALLY VERIFIED REPORT Rupert Coello M.D. at 06/28/2017 4:55 PM TEV/ljd TD: 06/21/2017 02:33 JOB #: [id number] MEDICAL IMAGING REPORT Page 1 of 1 COPY
--- NOTE | ~2017-06-20 | CR72 ---
[facility] A Service of [facility] & [facility] RADIOLOGY TEXT RESULTS PATIENT: LEONELA DUMONT LOCATION: [facility] : 44 UNIT #: [id number] AGE: [address]: Cecilia Hoyt MD SEX: M ORDER DR: [id number] [facility] [address] [place], [place] [address] [id number] E MR#: [id number] Acc #: [id number] NAME: LEONELA DUMONT. : 1945 SEX: M STUDY DATE/TIME: 06/20/2017 17:57 UNIT: [facility] ROOM: STUDY DESCRIPTION: CR Chest Single View Portable Attending Physician: Cecilia Hoyt M.D. Ordering Physician: Cecilia Hoyt M.D. Primary Care Physician: Mari Cooper M.D. MEDICAL IMAGING REPORT This report is preliminary unless electronic signature is present EXAM Portable chest, 06/20/2017 HISTORY Shortness of breath, COPD exacerbation, chest congestion for 3 days. FINDINGS The cardiac and mediastinal structures are stable compared with 04/04/2017. Left subclavian central line is unchanged. There is no pneumothorax. The lungs are hyperinflated with emphysematous and fibrotic changes characteristic of COPD. No airspace consolidation is seen. There are no pleural effusions. IMPRESSION COPD. No active pulmonary disease. Dictated by... Ye Emery M.D. THIS IS AN ELECTRONICALLY VERIFIED REPORT Ye Emery M.D. at 06/21/2017 7:19 AM DAKOTA/dora TD: 06/21/2017 00:21 JOB #: [id number] MEDICAL IMAGING REPORT Page 1 of 1 COPY
--- NOTE | ~2017-06-20 | EKG ---
PATIENT: LEONELA DUMONT UNIT #: [id number] Ventricular Rate: 96 BPM Atrial Rate: 96 BPM P-R Interval: 174 ms QRS Duration: 90 ms Q-T Interval: 332 ms QTC Calculation(Bezet): 419 ms P Redford: 72 degrees Calculated R Redford: 69 degrees Calculated T Redford: 82 degrees Diagnosis Line: Normal sinus rhythm Diagnosis Line: Left ventricular hypertrophy with repolarization Diagnosis Line: abnormality Diagnosis Line: Abnormal ECG Diagnosis Line: When compared with ECG of 18-MAY-2017 16:04, Diagnosis Line: No significant change was found Diagnosis Line: Confirmed by LENO YOUNG MD ([id number]) on 06/20/2017 Diagnosis Line: 7:29:28 PM INTERPRETING MD: HECTOR ACOSTA
[2017-06-20 17:00] LABS: BASOPHIL% 0.2 % (0-2.5); EOSINOPHIL# 0.1 X10e3 (0-0.7); EOSINOPHIL% 1.4 % (0.0-7.0); HEMATOCRIT 33.6 % (38.0-50.0); HEMOGLOBIN 10.8 gm/dL (13.0-16.0); LYMPHOCYTE# 0.7 X10e3 (1.0-3.5); LYMPHOCYTE% 7.5 % (17.0-45.0); MEAN CELL VOLUME 84.9 FL (83-96); MEAN CORPUSCULAR HEMOGLOBIN 27.3 PG (28-34); MEAN CORPUSCULAR HGB CONC 32.2 g/dL (30-36); MEAN PLATELET VOLUME 7.1 FL (6.5-11.5); MONOCYTE# 0.5 X10e3 (0-1.0); MONOCYTE% 4.8 % (3.0-12.0); NEUTROPHIL# 8.3 X10e3 (1.5-7.1); NEUTROPHIL% 86.1 % (40-75); PLATELET COUNT 255 X10e3 (140-420); RED BLOOD COUNT 3.96 X10e (3.90-5.60); RED CELL DISTRIBUTION WIDTH 15.8 % (11.0-15.5); WHITE BLOOD COUNT 9.6 X10e3 (4.0-10.5)
[2017-06-20 17:09] LABS: DIFF IND NO
[2017-06-20 17:23] LABS: ALBUMIN SERUM 4.1 g/dL (3.5-5.0); BILIRUBIN, DIRECT 0.1 mg/dL (0.0-0.2); BILIRUBIN,INDIRECT 0.3 mg/dL (0.0-0.9); BILIRUBIN,TOTAL 0.4 mg/dL (0.2-2.0); BUN/CREATININE RATIO 19.09; CALCIUM SERUM 9.5 mg/dL (8.4-10.2); CREATININE SERUM 1.1 mg/dL (0.6-1.4); GLOM FILT RATE Estimated 66.7 mL/min (>60); PROTEIN TOTAL SERUM 7.1 g/dL (6.0-8.3)
[2017-06-20 17:51] LABS: POC - CKMB 3.1 ng/mL (0.0-7.9); POC - TROPONIN <0.05 ng/mL (<=0.05)
[2017-06-20 19:49] LABS: POC - CKMB 4.2 ng/mL (0.0-7.9); POC - TROPONIN <0.05 ng/mL (<=0.05)
== END 2017-06-20 21:49 | disposition home or self-care (01) ==
LOC: CED 16:12
PROVIDERS: Emergency Medicine
DX: J44.1 Chronic obstructive pulmonary disease with (acute) exacerbation (principal); Z88.0 Allergy status to penicillin; Z88.1 Allergy status to other antibiotic agents
CPT/HCPCS: 36415; 71010; 71275; 80048; 80076; 82553; 83880; 84484; 85025; 85379; 93005; 96374; 96375; 99285; J1200; J1642; J2930; Q9967

== ENCOUNTER 2017-07-09 16:32 | Emergency (ER) | payer MEDICARE, OTHER ==
[~2017-07-09] VITALS: Ht 175.3 cm; Wt 59.0 kg
--- NOTE | ~2017-07-09 | CR72 ---
[facility] A Service of [facility] RADIOLOGY TEXT RESULTS PATIENT: LEONELA DUMONT LOCATION: [facility] : 44 UNIT #: [id number] AGE: [address]: Karina Eid MD SEX: M ORDER DR: [id number] [facility] [address] [place], [place] [address] [id number] E MR#: [id number] Acc #: [id number] NAME: LEONELA DUMONT. : 1945 SEX: M STUDY DATE/TIME: 07/09/2017 18:09 UNIT: [facility] ROOM: STUDY DESCRIPTION: CR Chest Single View Portable Attending Physician: Karina Eid M.D. Ordering Physician: Karina Eid M.D. Primary Care Physician: Mari Cooper M.D. MEDICAL IMAGING REPORT This report is preliminary unless electronic signature is present EXAM Portable chest x-ray, 07/09/2017. HISTORY Rib pain. Fall yesterday. Bilateral rib pain radiates posteriorly. COMPARISON 06/20/2017 FINDINGS No acute-appearing displaced rib fracture is seen. Patient shows rather marked generalized bony demineralization. If there is ongoing clinical concern for rib fracture, consider rib series. There are old healed posterior left rib fractures unchanged from prior study. The left-sided chest port is unchanged. Cardiomediastinal contours are stable. Hyperinflated relatively lucent lungs consistent with extensive underlying emphysema, stable. No indication of superimposed acute pulmonary disease, pneumothorax, or suspicious nodule. Prior vertebroplasty changes in the thoracic spine. Visualized upper abdomen unremarkable. Dictated by... Leonela Zurita M.D. THIS IS AN ELECTRONICALLY VERIFIED REPORT Leonela Zurita M.D. at 07/10/2017 8:03 PM MULUGETA/markel TD: 07/09/2017 22:50 JOB #: [id number] [facility] A Service of [facility] RADIOLOGY TEXT RESULTS PATIENT: LEONELA DUMONT LOCATION: [facility] : 43 UNIT #: [id number] AGE: [address]: Karina Eid MD SEX: M ORDER DR: MEDICAL IMAGING REPORT Page 1 of 1 COPY
--- NOTE | ~2017-07-09 | CR127 ---
[facility] A Service of [facility] RADIOLOGY TEXT RESULTS PATIENT: LEONELA DUMONT LOCATION: [facility] : 43 UNIT #: [id number] AGE: [address]: Karina Eid MD SEX: M ORDER DR: [id number] [place] [id number] [place], [place] [address] [id number] E MR#: [id number] Acc #: [id number] NAME: LEONELA DUMONT. : 1945 SEX: M STUDY DATE/TIME: 07/09/2017 16:53 UNIT: [facility] ROOM: STUDY DESCRIPTION: CR Foot Complete Min 3 View Rt Attending Physician: Karina Eid M.D. Ordering Physician: Karina Eid M.D. Primary Care Physician: Mari Cooper M.D. MEDICAL IMAGING REPORT This report is preliminary unless electronic signature is present EXAM Right foot 07/09/2017 HISTORY 71-year-old male in the ED complaining of right foot and ankle pain and swelling after a fall yesterday. TECHNIQUE Three-view right foot series. FINDINGS The examination shows a nondisplaced intraarticular fracture across the plantar base of the first proximal phalanx. Adjacent soft tissue swelling is noted. No additional right foot fracture or additional acute osseous abnormality is demonstrated. Demineralization suggests potential osteoporosis. IMPRESSION First proximal phalanx fracture. Dictated by... Matias Lowry M.D. THIS IS AN ELECTRONICALLY VERIFIED REPORT Matias Lowry M.D. at 07/19/2017 12:21 PM RGW/doroteo TD: 07/09/2017 21:54 JOB #: [id number] MEDICAL IMAGING REPORT [facility] A Service of [facility] RADIOLOGY TEXT RESULTS PATIENT: LEONELA DUMNOT LOCATION: [facility] : 43 UNIT #: [id number] AGE: [address]: Karina Eid MD SEX: M ORDER DR: Page 1 of 1 COPY
--- NOTE | ~2017-07-09 | CR21 ---
[facility] A Service of [facility] & [facility] RADIOLOGY TEXT RESULTS PATIENT: LEONELA DUMONT LOCATION: [facility] : 43 UNIT #: [id number] AGE: [address]: Karina Eid MD SEX: M ORDER DR: [id number] [facility] [address] [place], [place] [address] [id number] E MR#: [id number] Acc #: [id number] NAME: LEONELA DUMONT. : 1945 SEX: M STUDY DATE/TIME: 07/09/2017 16:56 UNIT: [facility] ROOM: STUDY DESCRIPTION: CR Ankle Min 3 Views Rt Attending Physician: Karina Eid M.D. Ordering Physician: Karina Eid M.D. Primary Care Physician: Mari Cooper M.D. MEDICAL IMAGING REPORT This report is preliminary unless electronic signature is present EXAM Right ankle series, 07/09/2017 HISTORY 71-year-old male in the ED with lateral ankle pain and swelling after a fall yesterday. FINDINGS Examination shows a subtle, nondisplaced acute fracture across the tip of the fibula. No additional ankle or hindfoot fracture is demonstrated. There is only mild soft tissue swelling over the lateral malleolus. Generalized demineralization suggests potential osteoporosis. IMPRESSION Nondisplaced distal fibula fracture. Dictated by... Matias Lowry M.D. THIS IS AN ELECTRONICALLY VERIFIED REPORT Matias Lowry M.D. at 07/19/2017 12:21 PM JOANN/carla TD: 07/09/2017 21:48 JOB #: [id number] MEDICAL IMAGING REPORT Page 1 of 1 COPY
== END 2017-07-09 19:02 | disposition home or self-care (01) ==
LOC: CED 16:32
DX: S82.831A Other fracture of upper and lower end of right fibula, initial encounter for closed fracture (principal); S92.414A Nondisplaced fracture of proximal phalanx of right great toe, initial encounter for closed fracture; I48.91 Unspecified atrial fibrillation; E11.9 Type 2 diabetes mellitus without complications; I10 Essential (primary) hypertension; J44.9 Chronic obstructive pulmonary disease, unspecified; E78.5 Hyperlipidemia, unspecified; Z88.0 Allergy status to penicillin; Z88.1 Allergy status to other antibiotic agents; W01.0XXA Fall on same level from slipping, tripping and stumbling without subsequent striking against object, initial encounter; Y92.009 Unspecified place in unspecified non-institutional (private) residence as the place of occurrence of the external cause
CPT/HCPCS: 29540; 71010; 73610; 73630; 99284